=== PATIENT | female | born 1945 | race Caucasian/White ===

== ENCOUNTER 2019-03-10 18:17 | Inpatient (IN) | payer MEDICARE, OTHER ==
[~2019-03-10] VITALS: Ht 165.1 cm; Wt 62.5 kg
[2019-03-10] MEDS ORDERED: DILTIAZEM 125 MG in SODIUM CHLORIDE 0.9% 100 ML IV SCH (18:44)
[2019-03-10] MEDS ORDERED: DILTIAZEM 5 MG/ML, 5ML ONE (18:58)
[2019-03-10] MEDS ORDERED: PLEASE ENTER ALLERGIES MC SCH (19:00)
[2019-03-10] MEDS ORDERED: DILTIAZEM 5 MG/ML, 5ML IV ONE (19:00)
--- NOTE | 2019-03-10 19:03 | NUR ---
BREAK RN FOR PRIMARY RN ASTER, REPORT RECEIVED. VERIFYING PT ALLERGIES PRIOR TO MEDICATION ADMIN WITH PT AND PHARMACY. DILTIAZEM DRIP REQUESTED FROM PHARMACY. PT IN A-FIB ON MONITOR, RATE 115-140. VITALS OTHERWISE STABLE. PT DENIES ANY CP, SOB, OR ANY PAIN "MY HEART HAS BEEN RACING TODAY WORSE THAN NORMAL. NORMALLY THE METOPROLOL CONTROLS THIS FOR ME." PT REPORTS USING 3L NC O2 AT ALL TIMES / FOR PULMONARY HYPERTENSION, PULSE OX 95% 3L NC. DR. VALLE HAS EVALUATED PT. RESTING IN POSITION OF COMFORT, DENIES NEED TO USE RESTROOM.
[2019-03-10 19:09] LABS: ALANINE AMINOTRANSFERASE 17 U/L (12-78); ALBUMIN 2.9 g/dL (3.4-5.0); ANION GAP 8 mmol/L (5-15); CALCIUM 8.9 mg/dL (8.5-10.1); CHLORIDE 95 mmol/L (98-107)
[2019-03-10] MEDS ORDERED: METOPROLOL 1 MG/ML, 5ML ONE ×2 (19:10→22:14)
--- NOTE | 2019-03-10 19:13 | NUR ---
PT MEDICATED NOTED IN EM[facility] PER DR. VALLE WITH METOPROLOL. DILTIAZEM HELD PER DR. VALLE AND PHARMACY AFTER DISCUSSING PT ALLERGIES. HR 100-120 ON MONITOR. VITALS OTHERWISE STABLE. WILL CONTINUE TO MONITOR. CALL LIGHT IN REACH. FALL PRECUATIONS IN PLACE. SPOUSE AT BEDSIDE. PT CONT TO DENY ANY CP, SOB OR PAIN.
[2019-03-10 19:14] LABS: ALKALINE PHOSPHATASE 232 U/L (45-117); BILIRUBIN,TOTAL 0.9 mg/dL (0.2-1.0); T4 (THYROXINE) 8.4 mcg/dL (4.8-13.9); TROPONIN I < 0.015 ng/mL (0.000-0.045)
--- NOTE | 2019-03-10 19:20 | NUR ---
HR IMRPOVING S/P MEDICATION, RATE 99-115, DISCUSSED WITH DR. VALLE AWARE.
[2019-03-10] MEDS ORDERED: METOPROLOL 1 MG/ML, 5ML IVPush ONE ×2 (19:30→22:00)
--- NOTE | 2019-03-10 19:35 | NUR ---
BEDSIDE REPORT AND CARE BACK TO PRIMARY RN ASTER AT THIS TIME
[2019-03-10 19:51] LABS: BASOPHILS # (AUTO) 0.02 x10^3/uL (0-0.1); BASOPHILS % (AUTO) 0 % (0-1); EOSINOPHILS # (AUTO) 0.19 x10^3/uL (0-0.4); EOSINOPHILS % (AUTO) 3 % (1-7); LYMPHOCYTES # (AUTO) 1.09 x10^3/uL (1-3.4); LYMPHOCYTES % (AUTO) 14 % (22-44); MD SCAN; MEAN CORPUSCULAR HEMOGLOBIN 31.6 pg (27.0-34.8); MEAN CORPUSCULAR HGB CONC 32.4 g/dL (32.4-35.8); MEAN CORPUSCULAR VOLUME 97.5 fL (80-100); MEAN PLATELET VOLUME 7.1 fL (7.4-10.4); MONOCYTES # (AUTO) 0.95 x10^3/uL (0.2-0.8); MONOCYTES % (AUTO) 12 % (2-9); NEUTROPHILS # (AUTO) 5.45 x10^3/uL (1.8-6.8); NEUTROPHILS % (AUTO) 71 % (42-75); PLATELET COUNT 279 x10^3/uL (130-400); RED BLOOD COUNT 2.95 x10^6/uL (3.82-5.3); RED CELL DISTRIBUTION WIDTH 17.6 % (9.6-15.2)
--- NOTE | 2019-03-10 20:09 | NUR ---
PT RESTING COMFORTABLY ON GURNEY. MADAI. AT BEDSIDE. HR 105-118
--- NOTE | 2019-03-10 21:01 | NUR ---
PT RESTING COMFORTABLY ON GURNEY. NADN. AT BEDSIDE. AWAITING ADMIT BED.
--- NOTE | 2019-03-10 21:28 | NUR ---
PT WITH [facility], CALLED [facility] TO SEE IF THEY'LL ACCEPT, STATED THEY WILL HAVE THEIR DOC DR. CASTELLANOS CALL PT ER DOC TO GET PROVIDER TO PROVIDER REPORT.
--- NOTE | 2019-03-10 21:38 | NUR ---
LOUISE VALLE ON PHONE WITH DR. CASTELLANOS GIVING DOC TO DOC REPORT. PER LOUISE VALLE, NATHALIE CASTELLANOS IS ACCEPTING PT. WILL CALL LAZARO CHAVEZ FOR ROOM AT [facility].
[2019-03-10] MEDS ORDERED: AMIODARONE 900 MG in DEXTROSE 5% 482 ML IV PRN (21:39)
--- NOTE | 2019-03-10 21:51 | NUR ---
PT RESTING COMFORTABLY ON GURNEY, WATCHING TV. NADN. AT BEDSIDE.
--- NOTE | 2019-03-10 22:23 | NUR ---
MEDS ADMINISTERED PER JUN. SAID OK TO WAIT ON AMIODARONE DRIP, D/T PT BEING TRANSFERRED TO [facility]. PT RESTING ON GURNEY. AJ.
[2019-03-10] MEDS ORDERED: FILTER 0.22 MICRON IV ONE (23:00)
--- NOTE | 2019-03-10 23:17 | NUR ---
MD STATES TO HOLD AMIODARONE DRIP UNTIL ADMITING HOSPITALIST PLACES ADMIT ORDERS.
--- NOTE | 2019-03-10 23:34 | NUR ---
REQUSTED HOSPITAL BED FOR PT WHILE WAITING FOR TELE BED.
--- NOTE | 2019-03-10 23:36 | NUR ---
PT SLEEPING ON GURNEY. MADAI. AT BEDSIDE. HR 101
--- NOTE | 2019-03-11 00:05 | NUR ---
REPORT GIVEN TO GINETTE CROWDER.
--- NOTE | 2019-03-11 00:15 | NUR ---
BEDSIDE REPORT AND CARE FROM ASTER CROWDER. ADMITTING PROVIDER DR. LORENZO AT BEDSIDE FOR EVALUATION. AWAITING ORDERS REGARDING AMIODARONE DRIP, CURRENTLY BEING HELD PER DR. VALLE AND ADMIT MD. PT REPOSITIONED FOR COMFORT WITH OWN WAFFLE PILLOW UNDER SACRUM PER REQUEST, PILLOWS UNDER LEGS FOR SUPPORT WELL NECK/HEAD. PT ON HOSPITAL BED FOR COMFORT. CURRENTLY TELE HOLD, AWAITING BED ASSIGNMENT ON FLOOR. VSS. HR 100-110, RATE CONTROLLED PER MD.
[2019-03-11] MEDS ORDERED: hydrALAzine 20 MG/ML, 1ML IVPush PRN (00:30)
[2019-03-11] MEDS ORDERED: ACETAMINOPHEN 325 MG TABLET PO PRN (00:30)
[2019-03-11] MEDS ORDERED: POLYETHYLENE GLYCOL 17 GM PACKET PO PRN (00:30)
[2019-03-11] MEDS ORDERED: morphine SULFATE 10 MG/ML, 1ML IVPush PRN (00:30)
[2019-03-11] MEDS ORDERED: OXYcodone IR 5MG TABLET PO PRN (00:30)
[2019-03-11] MEDS ORDERED: ONDANSETRON ODT 4 MG PO PRN (00:30)
[2019-03-11] MEDS ORDERED: PROMETHAZINE 25 MG/ML, 1ML IM PRN (00:30)
[2019-03-11] MEDS ORDERED: ONDANSETRON 2MG/ML, 2ML IVPush PRN (00:30)
[2019-03-11] MEDS ORDERED: BISACODYL 10 MG SUPP PR PRN (00:30)
--- NOTE | 2019-03-11 00:55 | NUR ---
REVIEWING ORDERS WITH DR. LORENZO, FOLLOW UP EKG TO BE COMPLETED PER MD. BEDSIDE REPORT AND TRANSFER OF CARE TO MARILEE CROWDER AT THIS TIME.
[2019-03-11] MEDS ORDERED: DILTIAZEM 125 MG in SODIUM CHLORIDE 0.9% 100 ML IV PRN (01:00)
--- NOTE | 2019-03-11 01:12 | NUR ---
Amrita nolan in [facility] - 03/11/19 at 0120 by KEVON PER JEAN CARLOS GARRETT AND ADITHYA AARONO
--- NOTE | 2019-03-11 01:13 | NUR ---
DR KUHN REQUESTS MED[employer]ITON RECONCILIATION. THIS RN HAS JUST TAKEN REPORT FOR THIS PT. PER PT, HER MEDICATION LIST IS WITH HER . HER HUBAND HAS ALREADY LEFT AND GONE HOME. I CONTACTED VIA PHONE AND HE DID NOT ANSWER. MESSAGE LEFT. UNABLE TO DO MED REC AT THIS TIME.
--- NOTE | 2019-03-11 01:13 | NUR ---
REPORT FROM LAKESHA PENG
[2019-03-11 01:21] LABS: FREE T4 (FREE THYROXINE) 1.41 ng/dL (0.76-1.46)
[2019-03-11] MEDS ORDERED: METOPROLOL 1 MG/ML, 5ML IVPush PRN (01:30)
--- NOTE | 2019-03-11 04:11 | NUR ---
PT ASSISTED TO BEDSIDE CAMMODE AND BACK TO BED
--- NOTE | 2019-03-11 04:37 | NUR ---
PT RESTING ON HOSPITAL BED WITH EYES CLOSED. RESPIRATIONS EVEN AND UNLABORED. NO ACUTE DISTRESS. NO REQUESTS AT THIS TIME.
[2019-03-11] MEDS ORDERED: METOPROLOL TARTRATE 25 MG TABLET ONE (06:17)
--- NOTE | 2019-03-11 06:27 | NUR ---
MED REQUEST SENT TO PHARM
[2019-03-11] MEDS: METOPROLOL SUCCINATE 50 MG TAB.ER.24H PO SCH (06:50)
--- NOTE | 2019-03-11 07:02 | NUR ---
REPORT TO LAKESHA MURPHY
--- NOTE | 2019-03-11 07:10 | NUR ---
REPORT RECEIVED FROM LAKESHA HUNT. PLAN OF CARE DISCUSSED.
[2019-03-11] MEDS: FERROUS SULFATE 325 MG TABLET PO SCH (07:57)
--- NOTE | 2019-03-11 08:02 | NUR ---
PATIENT MEDICATED PER EMAR, ASSISTED WITH STAND AND PIVOT TO COMMODE. TOLERATED WELL.
--- NOTE | 2019-03-11 08:10 | NUR ---
PATIENT EATING AT EDGE OF BED. WILL CALL RN FOR HELP BACK IN BED WHEN DONE EATING.
[2019-03-11] MEDS ORDERED: AMOXICILLIN 500 MG CAPSULE ONE (08:56)
[2019-03-11] MEDS: ALLOPURINOL 100 MG TABLET PO SCH ×2 (09:06→20:30)
[2019-03-11] MEDS: AMOXICILLIN 500 MG CAPSULE PO SCH ×2 (09:07→20:30)
[2019-03-11] MEDS: TORSEMIDE 20 MG TABLET PO SCH (09:07)
[2019-03-11] MEDS ORDERED: LIDOCAINE 1%, 10ML ONE (09:09)
[2019-03-11] MEDS ORDERED: AMIO400T5 PO (09:12)
[2019-03-11] MEDS ORDERED: ALLO100T30 PO (09:13)
[2019-03-11] MEDS ORDERED: TADA20TA33 PO (09:13)
[2019-03-11] MEDS ORDERED: AMOX-291 PO (09:14)
[2019-03-11] MEDS ORDERED: ASPI-496 PO (09:15)
[2019-03-11] MEDS ORDERED: FERR324T5 PO (09:16)
[2019-03-11] MEDS ORDERED: METO5TAB5 PO (09:17)
[2019-03-11] MEDS ORDERED: METO-93 PO (09:18)
[2019-03-11] MEDS ORDERED: MULT-257 PO (09:19)
[2019-03-11] MEDS ORDERED: TORS20TA2 PO (09:19)
[2019-03-11] MEDS ORDERED: CHOL100012 PO (09:20)
--- NOTE | 2019-03-11 09:23 | NUR ---
PATIENT MEDICATED PER EMAR, NEEDS ADDRESSED. MED REC LIST OBTAINED.
--- NOTE | 2019-03-11 10:50 | NUR ---
PATIENT RESTING COMFORTABLY IN BED, RESPIRATIONS EVEN AND UNLABORED, AT BEDSIDE. CALL LIGHT IN REACH
[2019-03-11 11:53] LABS: CELLS COUNTED 120
--- NOTE | 2019-03-11 12:06 | NUR ---
LAB CALLED VERBALIZING CRITICAL VALUE FROM [facility], SENDING FOR PATHOLOGY, MD CALLED AND AWARE.
--- NOTE | 2019-03-11 12:13 | NUR ---
PATIENT PROVIDED WITH LUNCH, EATING IN BED, CALL LIGHT IN REACH.
--- NOTE | 2019-03-11 15:13 | NUR ---
PATIENT RESTING COMFORTABLY, RESPIRATIONS EVEN AND UNLABORED, CALL LIGHT IN REACH.
--- NOTE | 2019-03-11 16:23 | NUR ---
PATIENT INFORMED THAT ROOM IS AVAILABLE, WAITING FOR ROOM TO BE CLEANED. PATIENT RESTING COMFORTABLY, CALL LIGHT IN REACH. AT BEDSIDE, AND GAVE US CELL NUMBER IN CASE HE HAS TO LEAVE. NAME IS ОЛЬГА, CELL NUMBER IS [phone].
--- NOTE | 2019-03-11 16:55 | NUR ---
CALLED TELE, ROOM IN PROCESS OF GETTING CLEANED, HOOF TRIMMER WILL CALL TO GET REPORT.
--- NOTE | 2019-03-11 17:03 | NUR ---
REPORT GIVEN TO LAKESHA DUENAS. PLAN OF CARE DISCUSSED.
[2019-03-11 18:06] VITALS: BP 122/63
[2019-03-11] MEDS ORDERED: METO-282 PO (18:16)
[2019-03-11 20:25] VITALS: BP 117/72
[2019-03-11] MEDS: DOCUSATE 100 MG CAPSULE PO PRN (20:32)
[2019-03-12 01:40] VITALS: BP 112/55
[2019-03-12] MEDS: METOPROLOL SUCCINATE 50 MG TAB.ER.24H PO SCH (05:29)
[2019-03-12 06:03] LABS: CHLORIDE 98 mmol/L (98-107)
[2019-03-12 06:06] LABS: MEAN CORPUSCULAR HEMOGLOBIN 31.7 pg (27.0-34.8); MEAN CORPUSCULAR HGB CONC 32.1 g/dL (32.4-35.8); MEAN CORPUSCULAR VOLUME 98.5 fL (80-100); PLATELET COUNT 262 x10^3/uL (130-400); RED BLOOD COUNT 2.97 x10^6/uL (3.82-5.3); RED CELL DISTRIBUTION WIDTH 17.1 % (9.6-15.2)
[2019-03-12 06:11] LABS: ALANINE AMINOTRANSFERASE 17 U/L (12-78); ALBUMIN 2.7 g/dL (3.4-5.0); ALKALINE PHOSPHATASE 204 U/L (45-117); ANION GAP 5 mmol/L (5-15); BILIRUBIN,TOTAL 0.9 mg/dL (0.2-1.0); CALCIUM 8.8 mg/dL (8.5-10.1); CHOL/HDL RATIO 4.9; CHOLESTEROL, TOTAL 166 mg/dL (140-239); CREATININE 1.43 mg/dL (0.55-1.02); HDL CHOL % 20 % (28-40); HDL CHOLESTEROL (DIRECT) 34 mg/dL (40-60); LDL CHOLESTEROL,CALCULATED 115 mg/dL (54-169); LDL/HDL RATIO 3.4 (0.5-3.0); TOTAL PROTEIN 6.6 g/dL (6.4-8.2); TRIGLYCERIDES 87 mg/dL (50-200); VLDL CHOLESTEROL 17 mg/dL (0-25)
[2019-03-12 06:40] LABS: ANISOCYTOSIS 1+; BASOPHILS # (AUTO) 0.04 x10^3/uL (0-0.1); BASOPHILS % (AUTO) 1 % (0-1); EOSINOPHILS # (AUTO) 0.25 x10^3/uL (0-0.4); EOSINOPHILS % (AUTO) 4 % (1-7); LYMPHOCYTES # (AUTO) 0.89 x10^3/uL (1-3.4); LYMPHOCYTES % (AUTO) 13 % (22-44); MD MORPH REVIEW ONLY; MONOCYTES # (AUTO) 0.99 x10^3/uL (0.2-0.8); MONOCYTES % (AUTO) 14 % (2-9); NEUTROPHILS # (AUTO) 4.93 x10^3/uL (1.8-6.8); NEUTROPHILS % (AUTO) 70 % (42-75); POLYCHROMASIA 1+
[2019-03-12 06:41] LABS: <PLATELET ESTIMATE> ADEQUATE; <PLT MORPHOLOGY> NORMAL PLT MORPH; OVALOCYTES 1+
[2019-03-12 07:05] VITALS: BP 121/65
[2019-03-12] MEDS: FERROUS SULFATE 325 MG TABLET PO SCH (08:36)
[2019-03-12] MEDS: AMOXICILLIN 500 MG CAPSULE PO SCH ×2 (08:36→21:22)
[2019-03-12] MEDS: ALLOPURINOL 100 MG TABLET PO SCH ×2 (08:36→21:23)
[2019-03-12] MEDS: TORSEMIDE 20 MG TABLET PO SCH (08:37)
[2019-03-12 19:40] VITALS: BP 119/71
[2019-03-12] MEDS ORDERED: TADALAFIL 20 MG PO SCH (21:00)
[2019-03-12] MEDS: TADALAFIL 40 MG PO SCH (21:22)
[2019-03-13 00:57] VITALS: BP 115/56
[2019-03-13] MEDS: METOPROLOL SUCCINATE 50 MG TAB.ER.24H PO SCH (06:36)
[2019-03-13 07:56] VITALS: BP 132/62
[2019-03-13] MEDS: AMOXICILLIN 500 MG CAPSULE PO SCH ×2 (08:37→22:27)
[2019-03-13] MEDS: ALLOPURINOL 100 MG TABLET PO SCH ×2 (08:37→22:27)
[2019-03-13] MEDS: TORSEMIDE 20 MG TABLET PO SCH (08:38)
[2019-03-13] MEDS: FERROUS SULFATE 325 MG TABLET PO SCH (08:38)
[2019-03-13 15:47] VITALS: BP 118/71
[2019-03-13 19:31] VITALS: BP 113/60
[2019-03-13] MEDS: TADALAFIL 40 MG PO SCH (22:28)
[2019-03-14 02:57] VITALS: BP 106/51
[2019-03-14] MEDS: METOPROLOL SUCCINATE 50 MG TAB.ER.24H PO SCH (06:28)
[2019-03-14 07:03] VITALS: BP 121/61
[2019-03-14] MEDS: FERROUS SULFATE 325 MG TABLET PO SCH (10:00)
[2019-03-14] MEDS: TORSEMIDE 20 MG TABLET PO SCH (10:00)
[2019-03-14] MEDS: ALLOPURINOL 100 MG TABLET PO SCH ×2 (10:00→21:03)
[2019-03-14] MEDS: AMOXICILLIN 500 MG CAPSULE PO SCH (10:01)
[2019-03-14] MEDS ORDERED: METOLAZONE 5 MG TABLET PO SCH (12:00)
[2019-03-14 12:17] LABS: ALBUMIN 2.8 g/dL (3.4-5.0); ANION GAP 8 mmol/L (5-15); CALCIUM 8.4 mg/dL (8.5-10.1); CHLORIDE 93 mmol/L (98-107); CREATININE 1.54 mg/dL (0.55-1.02)
[2019-03-14 12:45] LABS: MEAN CORPUSCULAR HGB CONC 31.9 g/dL (32.4-35.8); MEAN CORPUSCULAR VOLUME 97.4 fL (80-100); MEAN PLATELET VOLUME 6.6 fL (7.4-10.4); PLATELET COUNT 284 x10^3/uL (130-400); RED BLOOD COUNT 3.14 x10^6/uL (3.82-5.3)
[2019-03-14 12:49] LABS: BASOPHILS # (AUTO) 0.03 x10^3/uL (0-0.1); BASOPHILS % (AUTO) 1 % (0-1); EOSINOPHILS # (AUTO) 0.12 x10^3/uL (0-0.4); EOSINOPHILS % (AUTO) 2 % (1-7); LYMPHOCYTES # (AUTO) 0.85 x10^3/uL (1-3.4); LYMPHOCYTES % (AUTO) 13 % (22-44); MD SCAN; MONOCYTES % (AUTO) 14 % (2-9); NEUTROPHILS # (AUTO) 4.45 x10^3/uL (1.8-6.8); NEUTROPHILS % (AUTO) 70 % (42-75)
[2019-03-14] MEDS ORDERED: LIDOCAINE 1%, 10ML ONE (13:32)
[2019-03-14 13:45] VITALS: BP 112/57
[2019-03-14 18:44] VITALS: BP 120/69
[2019-03-14] MEDS: TADALAFIL 40 MG PO SCH (21:03)
[2019-03-15 01:04] VITALS: BP 113/63
[2019-03-15] MEDS: METOPROLOL SUCCINATE 50 MG TAB.ER.24H PO SCH (05:25)
[2019-03-15] MEDS: DOCUSATE 100 MG CAPSULE PO PRN (05:28)
[2019-03-15 05:48] LABS: MEAN CORPUSCULAR HEMOGLOBIN 31.2 pg (27.0-34.8); MEAN CORPUSCULAR HGB CONC 31.7 g/dL (32.4-35.8); MEAN CORPUSCULAR VOLUME 98.5 fL (80-100); MEAN PLATELET VOLUME 7.1 fL (7.4-10.4); PLATELET COUNT 265 x10^3/uL (130-400); RED BLOOD COUNT 3.02 x10^6/uL (3.82-5.3)
[2019-03-15 05:49] LABS: ALBUMIN 2.6 g/dL (3.4-5.0); ANION GAP 7 mmol/L (5-15); CALCIUM 8.5 mg/dL (8.5-10.1); CHLORIDE 94 mmol/L (98-107)
[2019-03-15 05:51] LABS: CREATININE 1.65 mg/dL (0.55-1.02)
[2019-03-15 06:23] LABS: BASOPHILS # (AUTO) 0.05 x10^3/uL (0-0.1); BASOPHILS % (AUTO) 1 % (0-1); EOSINOPHILS # (AUTO) 0.17 x10^3/uL (0-0.4); EOSINOPHILS % (AUTO) 3 % (1-7); LYMPHOCYTES # (AUTO) 0.92 x10^3/uL (1-3.4); LYMPHOCYTES % (AUTO) 14 % (22-44); MD SCAN; MONOCYTES # (AUTO) 0.83 x10^3/uL (0.2-0.8); MONOCYTES % (AUTO) 13 % (2-9); NEUTROPHILS # (AUTO) 4.53 x10^3/uL (1.8-6.8); NEUTROPHILS % (AUTO) 70 % (42-75)
[2019-03-15 06:44] VITALS: BP 113/67
[2019-03-15] MEDS: FERROUS SULFATE 325 MG TABLET PO SCH (09:27)
[2019-03-15] MEDS: TORSEMIDE 20 MG TABLET PO SCH (09:28)
[2019-03-15] MEDS: ALLOPURINOL 100 MG TABLET PO SCH ×2 (09:28→20:25)
[2019-03-15] MEDS: TADALAFIL 40 MG PO SCH (09:31)
[2019-03-15 12:49] VITALS: BP 125/66
[2019-03-15] MEDS ORDERED: METO5TAB5 PO (16:59)
[2019-03-15 19:49] VITALS: BP 120/68
[2019-03-16 01:28] VITALS: BP 127/66
[2019-03-16 05:41] LABS: ALBUMIN 2.6 g/dL (3.4-5.0); ANION GAP 9 mmol/L (5-15); CALCIUM 8.6 mg/dL (8.5-10.1); CHLORIDE 94 mmol/L (98-107)
[2019-03-16 05:54] LABS: MEAN CORPUSCULAR HEMOGLOBIN 31.3 pg (27.0-34.8); MEAN CORPUSCULAR HGB CONC 32.4 g/dL (32.4-35.8); MEAN CORPUSCULAR VOLUME 96.7 fL (80-100); MEAN PLATELET VOLUME 7.1 fL (7.4-10.4); PLATELET COUNT 265 x10^3/uL (130-400); RED BLOOD COUNT 2.96 x10^6/uL (3.82-5.3); RED CELL DISTRIBUTION WIDTH 22.6 % (9.6-15.2)
[2019-03-16] MEDS: METOPROLOL SUCCINATE 50 MG TAB.ER.24H PO SCH (05:54)
[2019-03-16 06:29] LABS: BASOPHILS # (AUTO) 0.03 x10^3/uL (0-0.1); BASOPHILS % (AUTO) 0 % (0-1); EOSINOPHILS # (AUTO) 0.14 x10^3/uL (0-0.4); EOSINOPHILS % (AUTO) 2 % (1-7); LYMPHOCYTES # (AUTO) 0.85 x10^3/uL (1-3.4); LYMPHOCYTES % (AUTO) 13 % (22-44); MD SCAN; MONOCYTES % (AUTO) 13 % (2-9); NEUTROPHILS # (AUTO) 4.82 x10^3/uL (1.8-6.8); NEUTROPHILS % (AUTO) 72 % (42-75)
[2019-03-16 07:03] VITALS: BP 116/63
[2019-03-16] MEDS: FERROUS SULFATE 325 MG TABLET PO SCH (09:50)
[2019-03-16] MEDS: ALLOPURINOL 100 MG TABLET PO SCH (09:50)
[2019-03-16] MEDS: TORSEMIDE 20 MG TABLET PO SCH (09:50)
[2019-03-16] MEDS: TADALAFIL 40 MG PO SCH (09:52)
[2019-03-16 12:18] VITALS: BP 121/70
== END 2019-03-16 12:35 | DRG 291 ==
LOC: ED 19:48 → EDIP 19:50 → 5SO 03-11 17:55
PROVIDERS: ADMIT Internal Medicine; ATTEND Internal Medicine
PROC: 0W993ZZ Drainage of Right Pleural Cavity, Percutaneous Approach (ICD-10-PCS; 2019-03-11)
PROC: 0W993ZZ Drainage of Right Pleural Cavity, Percutaneous Approach (ICD-10-PCS; principal; 2019-03-14)
DX: I13.0 Hypertensive heart and chronic kidney disease with heart failure and stage 1 through stage 4 chronic kidney disease, or unspecified chronic kidney disease (principal); I50.33 Acute on chronic diastolic (congestive) heart failure; E72.01 Cystinuria; E87.1 Hypo-osmolality and hyponatremia; J91.8 Pleural effusion in other conditions classified elsewhere; I48.91 Unspecified atrial fibrillation; D64.9 Anemia, unspecified; E88.09 Other disorders of plasma-protein metabolism, not elsewhere classified; I08.3 Combined rheumatic disorders of mitral, aortic and tricuspid valves; I27.20 Pulmonary hypertension, unspecified; N18.3 Chronic kidney disease, stage 3 (moderate); N20.0 Calculus of kidney; Z79.82 Long term (current) use of aspirin; Z87.442 Personal history of urinary calculi; Z90.5 Acquired absence of kidney; Z88.0 Allergy status to penicillin; Z88.8 Allergy status to other drugs, medicaments and biological substances
CPT/HCPCS: 32555; 36415; 71045; 80053; 80061; 80069; 82945; 83036; 83615; 83735; 84157; 84436; 84439; 84443; 84484; 85025; 87070; 87205; 88112; 88305; 89051; 93005; 93306; 96374; 96376; G0378